=== PATIENT | male | born 1960 | race Caucasian/White ===

== ENCOUNTER → 2017-01-11 | Outpatient (CLI) | payer BC ==
[~2017-01-11] MED LIST: ACCUPRIL20 MG PO; PERCOCET 325 MG1 TA7 PO; ZOFRAN ODT4 MG SL
[2017-01-11 10:11] LABS: BASO % 0.5 % (0.0-1.0); EOS # 0.3 10*3/uL (0.0-0.4); EOS % 3.3 % (1.0-4.0); HEMATOCRIT 52.4 % (42.0-52.0); HEMOGLOBIN 17.3 g/dl (14.0-18.0); LYMPH # 1.9 10*3/uL (1.3-4.4); LYMPH % 24.8 % (27.0-41.0); MEAN CELL VOLUME 87.5 fl (80.0-94.0); MEAN CORPUSCULAR HGB 28.9 pg (27.0-31.0); MEAN PLATELET VOLUME 10.4 fl (9.6-12.3); MONO # 0.7 10*3/uL (0.1-1.0); NEUT # 4.8 10*3/uL (2.3-7.9); NEUT % 62.1 % (47.0-73.0); PLATELET COUNT AUTOMATED 238 10*3/uL (130-400); RED BLOOD COUNT 5.99 10*6/uL (4.50-5.90); RED CELL DISTRI WIDTH 13.8 % (0-14.5); WHITE BLOOD COUNT 7.7 10*3/uL (4.8-10.8)
[2017-01-11 10:34] LABS: ALBUMIN 3.6 gm/dl (3.1-4.5); ALKALINE PHOSPHATASE 134 U/L (45-117); BILIRUBIN, DIRECT < 0.1 mg/dL (0.0-0.2); BILIRUBIN, TOTAL 0.4 mg/dl (0.2-1.0); BUN 17 mg/dl (7-24); CARBON DIOXIDE 28 mmol/L (21-32); CHLORIDE 110 mmol/L (98-107); CHOLESTEROL 212 mg/dL (<200); EST GLOM FILT AFRICAN AMERICAN > 60 ml/min; GLUCOSE 94 mg/dL (65-99); HDL CHOLESTEROL 78 mg/dl (40-60); LDL CHOLESTEROL 112 mg/dL (9-159); POTASSIUM 4.4 mmol/L (3.5-5.1); SGOT/AST 19 IU/L (3-35); SGPT/ALT 34 U/L (12-78); SODIUM 146 mmol/L (136-145); TRIGLYCERIDES 108 mg/dl (<150); VLDL CHOLESTEROL 22 mg/dL (6-40)
[2017-01-11 10:39] LABS: THYROID STIM HORMONE (HS) 0.741 uIU/ml (0.358-4.75); THYROXINE (T4) TOTAL 8.1 ug/dl (4.5-12.1)
== END | disposition home or self-care (01) ==
LOC: LAB 09:38
PROVIDERS: Family Medicine
DX: Z12.5 Encounter for screening for malignant neoplasm of prostate (principal); I10 Essential (primary) hypertension; R35.1 Nocturia

== ENCOUNTER → 2017-07-14 | Outpatient (CLI) | payer BC | END | disposition home or self-care (01) | LOC: LAB 15:42 | DX: R97.20 Elevated prostate specific antigen [PSA] (principal) ==

== ENCOUNTER → 2018-01-17 | Outpatient (CLI) | payer BC | END | disposition home or self-care (01) | LOC: LAB 13:53 | DX: R97.20 Elevated prostate specific antigen [PSA] (principal) ==

== ENCOUNTER → 2018-04-14 | Outpatient (CLI) | payer BC ==
[2018-04-14 08:37] LABS: BASO % 0.5 % (0.0-1.0); EOS # 0.2 10*3/uL (0.0-0.4); EOS % 3.3 % (1.0-4.0); HEMOGLOBIN 17.7 g/dl (14.0-18.0); LYMPH # 1.8 10*3/uL (1.3-4.4); LYMPH % 29.4 % (27.0-41.0); MEAN CELL VOLUME 87.4 fl (80.0-94.0); MEAN CORPUSCULAR HGB 28.6 pg (27.0-31.0); MEAN CORPUSCULAR HGB CONC 32.8 g/dl (33.0-37.0); MEAN PLATELET VOLUME 9.6 fl (9.6-12.3); MONO # 0.7 10*3/uL (0.1-1.0); NEUT # 3.4 10*3/uL (2.3-7.9); NEUT % 54.6 % (47.0-73.0); PLATELET COUNT AUTOMATED 262 10*3/uL (130-400); RED BLOOD COUNT 6.18 10*6/uL (4.50-5.90); RED CELL DISTRI WIDTH 13.2 % (0-14.5); WHITE BLOOD COUNT 6.2 10*3/uL (4.8-10.8)
[2018-04-14 08:53] LABS: BUN 15 mg/dl (7-24); CHLORIDE 113 mmol/L (98-107); CREATININE 0.94 mg/dL (0.70-1.30); SODIUM 146 mmol/L (136-145)
== END | disposition home or self-care (01) ==
LOC: LAB 07:53
PROVIDERS: Orthopaedic Surgery
DX: M16.12 Unilateral primary osteoarthritis, left hip (principal); I10 Essential (primary) hypertension; F17.210 Nicotine dependence, cigarettes, uncomplicated; Z96.642 Presence of left artificial hip joint

== ENCOUNTER → 2018-07-21 | Outpatient (CLI) | payer BC | END | disposition home or self-care (01) | LOC: LAB 14:56 | DX: R97.20 Elevated prostate specific antigen [PSA] (principal) ==

== ENCOUNTER → 2019-07-03 | Outpatient (CLI) | payer BC ==
[2019-07-03 09:12] LABS: HEMATOCRIT 54.2 % (42.0-52.0); HEMOGLOBIN 17.8 g/dl (14.0-18.0); MEAN CELL VOLUME 85.6 fl (80.0-94.0); MEAN CORPUSCULAR HGB 28.1 pg (27.0-31.0); MEAN CORPUSCULAR HGB CONC 32.8 g/dl (33.0-37.0); MEAN PLATELET VOLUME 9.4 fl (9.6-12.3); RED BLOOD COUNT 6.33 10*6/uL (4.50-5.90); RED CELL DISTRI WIDTH 13.9 % (0-14.5); WHITE BLOOD COUNT 8.1 10*3/uL (4.8-10.8)
[2019-07-03 09:38] LABS: ALBUMIN 3.7 gm/dl (3.1-4.5); BILIRUBIN, DIRECT 0.1 mg/dL (0.0-0.2); BUN 13 mg/dl (7-24); CHLORIDE 108 mmol/L (98-107); CHOLESTEROL 206 mg/dL (<200); CREATININE 0.87 mg/dL (0.70-1.30); POTASSIUM 3.8 mmol/L (3.5-5.1); SGOT/AST 23 IU/L (3-35); SGPT/ALT 39 U/L (12-78); SODIUM 142 mmol/L (136-145); TOTAL PROTEIN 7.3 gm/dL (6.4-8.2); TRIGLYCERIDES 144 mg/dl (<150); VLDL CHOLESTEROL 29 mg/dL (6-40)
[2019-07-03 09:45] LABS: ALKALINE PHOSPHATASE 137 U/L (45-117); HDL CHOLESTEROL 52 mg/dl (40-60); LDL CHOLESTEROL 125 mg/dL (9-159); THYROID STIM HORMONE (HS) 0.908 uIU/ml (0.358-4.75); THYROXINE (T4) TOTAL 7.4 ug/dl (4.5-12.1)
== END | disposition home or self-care (01) ==
LOC: LAB 08:51
PROVIDERS: Family Medicine
DX: E11.9 Type 2 diabetes mellitus without complications (principal); I10 Essential (primary) hypertension; R97.20 Elevated prostate specific antigen [PSA]

== ENCOUNTER → 2020-12-11 | Outpatient (CLI) | payer BC ==
[2020-12-11 10:22] LABS: BASO # 0.1 10*3/uL (0.0-0.1); BASO % 0.9 % (0.0-1.0); EOS # 0.1 10*3/uL (0.0-0.4); EOS % 1.3 % (1.0-4.0); HEMATOCRIT 53.1 % (42.0-52.0); LYMPH # 2.1 10*3/uL (1.3-4.4); LYMPH % 30.7 % (27.0-41.0); MEAN CELL VOLUME 86.2 fl (80.0-94.0); MEAN CORPUSCULAR HGB 28.2 pg (27.0-31.0); MEAN CORPUSCULAR HGB CONC 32.8 g/dl (33.0-37.0); MEAN PLATELET VOLUME 9.4 fl (9.6-12.3); MONO # 0.8 10*3/uL (0.1-1.0); MONO % 10.8 % (3.0-9.0); NEUT # 3.9 10*3/uL (2.3-7.9); PLATELET COUNT AUTOMATED 277 10*3/uL (130-400); RED BLOOD COUNT 6.16 10*6/uL (4.50-5.90); RED CELL DISTRI WIDTH 14.1 % (0-14.5)
[2020-12-11 10:53] LABS: ALBUMIN 3.5 gm/dl (3.1-4.5); ALKALINE PHOSPHATASE 128 U/L (45-117); BILIRUBIN, DIRECT 0.1 mg/dL (0.0-0.2); BUN 13 mg/dl (7-24); CHLORIDE 111 mmol/L (98-107); CHOLESTEROL 226 mg/dL (<200); HDL CHOLESTEROL 59 mg/dl (40-60); LDL CHOLESTEROL 142 mg/dL (9-159); POTASSIUM 4.3 mmol/L (3.5-5.1); SGOT/AST 22 IU/L (3-35); SGPT/ALT 41 U/L (12-78); SODIUM 144 mmol/L (136-145); THYROXINE (T4) TOTAL 8.6 ug/dl (4.5-12.1); TOTAL PROTEIN 7.6 gm/dL (6.4-8.2); TRIGLYCERIDES 125 mg/dl (<150); VLDL CHOLESTEROL 25 mg/dL (6-40)
== END | disposition home or self-care (01) ==
LOC: LAB 09:31
PROVIDERS: ATTEND Family Medicine
DX: I10 Essential (primary) hypertension (principal); N40.0 Benign prostatic hyperplasia without lower urinary tract symptoms; R73.9 Hyperglycemia, unspecified

== ENCOUNTER → 2021-04-04 | Outpatient (CLI) | payer BC | END | disposition home or self-care (01) | LOC: LAB 10:46 | PROVIDERS: ATTEND Urology | DX: R97.20 Elevated prostate specific antigen [PSA] (principal) ==

== ENCOUNTER → 2021-07-01 | Outpatient (CLI) | payer BC | END | disposition home or self-care (01) | LOC: LAB 10:47 | PROVIDERS: ATTEND Urology | DX: R97.20 Elevated prostate specific antigen [PSA] (principal) ==

== ENCOUNTER → 2022-08-13 | Outpatient (CLI) | payer BC ==
[2022-08-13 13:15] LABS: ALKALINE PHOSPHATASE 116 U/L (45-117); BUN 19 mg/dl (7-24); CHLORIDE 111 mmol/L (98-107); CHOLESTEROL 221 mg/dL (<200); CREATININE 0.91 mg/dL (0.70-1.30); LDL CHOLESTEROL 127 mg/dL (9-159); SGOT/AST 25 IU/L (3-35); SGPT/ALT 53 U/L (12-78); SODIUM 142 mmol/L (136-145); THYROXINE (T4) TOTAL 8.8 ug/dl (4.5-12.1); TOTAL PROTEIN 7.2 gm/dL (6.4-8.2); TRIGLYCERIDES 236 mg/dl (<150)
== END | disposition home or self-care (01) ==
LOC: LAB 12:25
PROVIDERS: ATTEND Family Medicine
DX: J44.9 Chronic obstructive pulmonary disease, unspecified (principal); I10 Essential (primary) hypertension; R97.20 Elevated prostate specific antigen [PSA]; R60.9 Edema, unspecified; Z79.899 Other long term (current) drug therapy

== ENCOUNTER → 2023-03-31 | Outpatient (CLI) | payer BC ==
[2023-03-31 09:35] LABS: BASO # 0.1 10*3/uL (0.0-0.1); BASO % 0.7 % (0.0-1.0); EOS # 0.3 10*3/uL (0.0-0.4); EOS % 3.3 % (1.0-4.0); HEMATOCRIT 54.5 % (42.0-52.0); LYMPH # 2.3 10*3/uL (1.3-4.4); LYMPH % 27.7 % (27.0-41.0); MEAN CELL VOLUME 86.4 fl (80.0-94.0); MEAN CORPUSCULAR HGB 28.5 pg (27.0-31.0); MEAN PLATELET VOLUME 9.4 fl (9.6-12.3); MONO # 0.9 10*3/uL (0.1-1.0); MONO % 11.4 % (3.0-9.0); NEUT # 4.6 10*3/uL (2.3-7.9); NEUT % 56.5 % (47.0-73.0); PLATELET COUNT AUTOMATED 259 10*3/uL (130-400); RED BLOOD COUNT 6.31 10*6/uL (4.50-5.90); RED CELL DISTRI WIDTH 13.7 % (0-14.5); WHITE BLOOD COUNT 8.2 10*3/uL (4.8-10.8)
[2023-03-31 10:07] LABS: ALKALINE PHOSPHATASE 118 U/L (46-116); BUN 13 mg/dl (9-23); CHLORIDE 105 mmol/L (98-107); CHOLESTEROL 230 mg/dL (<200); LDL CHOLESTEROL 137 mg/dL (9-159); POTASSIUM 4.1 mmol/L (3.4-5.1); SGPT/ALT 39 U/L (10-49); THYROID STIM HORMONE (HS) 1.183 uIU/ml (0.550-4.780); THYROXINE (T4) TOTAL 6.8 ug/dl (4.5-10.9); TOTAL PROTEIN 7.2 gm/dL (6.0-8.0); TRIGLYCERIDES 222 mg/dl (<150)
== END | disposition home or self-care (01) ==
LOC: LAB 09:07
PROVIDERS: ATTEND Family Medicine
DX: Z12.5 Encounter for screening for malignant neoplasm of prostate (principal); E78.00 Pure hypercholesterolemia, unspecified; E03.9 Hypothyroidism, unspecified; Z79.899 Other long term (current) drug therapy; R73.9 Hyperglycemia, unspecified

== ENCOUNTER → 2023-07-26 | Outpatient (CLI) | payer MEDICARE, BC | END | disposition home or self-care (01) | LOC: LAB 13:18 | PROVIDERS: ATTEND Urology | DX: N40.1 Benign prostatic hyperplasia with lower urinary tract symptoms (principal); R97.20 Elevated prostate specific antigen [PSA] ==

== ENCOUNTER → 2023-07-28 | Outpatient (CLI) | payer MEDICARE, BC | END | disposition home or self-care (01) | LOC: RAD 11:36 | PROVIDERS: ATTEND Family Medicine | DX: M50.322 Other cervical disc degeneration at C5-C6 level (principal); M48.02 Spinal stenosis, cervical region; M25.78 Osteophyte, vertebrae; M25.511 Pain in right shoulder ==

== ENCOUNTER 2023-12-02 07:54 | Emergency (ER) | payer MEDICARE, BC ==
[~2023-12-02] VITALS: Ht 177.8 cm; Wt 117.9 kg
[2023-12-02] MEDS ORDERED: Ketorolac Tromethamine 60 MG/2 ML VIAL IM ONE (10:15)
[2023-12-02] MEDS ORDERED: MELOXICAM15 MG PO (10:16)
== END 2023-12-02 10:47 | disposition home or self-care (01) ==
LOC: ED 07:54
DX: S83.92XA Sprain of unspecified site of left knee, initial encounter (principal); Z79.899 Other long term (current) drug therapy; Z98.890 Other specified postprocedural states; W18.43XA Slipping, tripping and stumbling without falling due to stepping from one level to another, initial encounter; Y93.89 Activity, other specified; Y92.89 Other specified places as the place of occurrence of the external cause; Y99.8 Other external cause status

== ENCOUNTER → 2024-04-05 | Outpatient (CLI) | payer MEDICARE, BC ==
[~2024-04-05] MED LIST changes: +MELOXICAM15 MG PO
[2024-04-05 09:38] LABS: BASO # 0.1 10*3/uL (0.0-0.1); BASO % 0.7 % (0.0-1.0); EOS # 0.7 10*3/uL (0.0-0.4); HEMATOCRIT 53.5 % (42.0-52.0); LYMPH # 2.4 10*3/uL (1.3-4.4); LYMPH % 25.3 % (27.0-41.0); MEAN CELL VOLUME 86.6 fl (80.0-94.0); MEAN CORPUSCULAR HGB 28.5 pg (27.0-31.0); MEAN CORPUSCULAR HGB CONC 32.9 g/dl (33.0-37.0); MEAN PLATELET VOLUME 9.4 fl (9.6-12.3); MONO # 1.1 10*3/uL (0.1-1.0); NEUT # 5.3 10*3/uL (2.3-7.9); NEUT % 55.7 % (47.0-73.0); PLATELET COUNT AUTOMATED 281 10*3/uL (130-400); RED BLOOD COUNT 6.18 10*6/uL (4.50-5.90); RED CELL DISTRI WIDTH 13.8 % (0-14.5); WHITE BLOOD COUNT 9.6 10*3/uL (4.8-10.8)
[2024-04-05 10:17] LABS: ALKALINE PHOSPHATASE 118 U/L (46-116); BUN 12 mg/dl (9-23); CHLORIDE 105 mmol/L (98-107); CHOLESTEROL 229 mg/dL (<200); LDL CHOLESTEROL 141 mg/dL (9-159); POTASSIUM 3.6 mmol/L (3.4-5.1); SGPT/ALT 26 U/L (5-49); THYROXINE (T4) TOTAL 8.4 ug/dl (4.5-10.9); TOTAL PROTEIN 7.1 gm/dL (6.0-8.0); TRIGLYCERIDES 206 mg/dl (<150)
== END ==
LOC: LAB 09:08
PROVIDERS: ATTEND Family Medicine
DX: Z12.5 Encounter for screening for malignant neoplasm of prostate (principal); I10 Essential (primary) hypertension; R73.9 Hyperglycemia, unspecified

== ENCOUNTER → 2024-06-01 | Outpatient (CLI) | payer MEDICARE, BC ==
[2024-06-01 18:23] LABS: BUN 13 mg/dl (9-23); CHLORIDE 109 mmol/L (98-107); POTASSIUM 3.9 mmol/L (3.4-5.1)
== END | disposition home or self-care (01) ==
LOC: LAB 17:49
PROVIDERS: ATTEND Family Medicine
DX: S00.96XA Insect bite (nonvenomous) of unspecified part of head, initial encounter (principal); X58.XXXA Exposure to other specified factors, initial encounter; Y93.89 Activity, other specified; Y92.89 Other specified places as the place of occurrence of the external cause; Y99.8 Other external cause status

== ENCOUNTER → 2024-06-06 | Outpatient (CLI) | payer MEDICARE, BC | END | disposition home or self-care (01) | LOC: RAD 14:58 | PROVIDERS: ATTEND Family Medicine | DX: M25.511 Pain in right shoulder (principal) ==

== ENCOUNTER → 2024-06-15 | Outpatient (CLI) | payer MEDICARE, BC | END | disposition home or self-care (01) | LOC: RAD 13:59 | PROVIDERS: ATTEND Family Medicine | DX: M47.812 Spondylosis without myelopathy or radiculopathy, cervical region (principal); M48.02 Spinal stenosis, cervical region ==

== ENCOUNTER → 2025-06-28 | Outpatient (CLI) | payer MEDICARE, BC ==
[2025-06-28 08:17] LABS: BASO # 0.1 10*3/uL (0.0-0.1); BASO % 0.7 % (0.0-1.0); EOS # 0.3 10*3/uL (0.0-0.4); EOS % 3.6 % (1.0-4.0); MEAN CELL VOLUME 87.5 fl (80.0-94.0); MEAN CORPUSCULAR HGB 28.5 pg (27.0-31.0); MEAN PLATELET VOLUME 9.7 fl (9.6-12.3); MONO # 0.8 10*3/uL (0.1-1.0); MONO % 10.7 % (3.0-9.0); NEUT # 4.3 10*3/uL (2.3-7.9); NEUT % 57.2 % (47.0-73.0); NUCLEATED RED BLOOD CELL 0.0 % (0.0-0.0); NUCLEATED RED BLOOD CELL 0.0 10*3/uL (0.0-0.0); PLATELET COUNT AUTOMATED 267 10*3/uL (130-400); RED CELL DISTRI WIDTH 13.8 % (0-14.5)
[2025-06-28 08:39] LABS: BUN 12 mg/dl (9-23); LDL CHOLESTEROL 116 mg/dL (9-159); SGPT/ALT 19 U/L (5-49)
[2025-06-28 09:46] LABS: VITAMIN D, 25-HYDROXY 40.7 ng/mL (30-100)
== END | disposition home or self-care (01) ==
LOC: LAB 07:44
PROVIDERS: ATTEND Family Medicine
DX: I10 Essential (primary) hypertension (principal); R73.9 Hyperglycemia, unspecified; R97.20 Elevated prostate specific antigen [PSA]; E55.9 Vitamin D deficiency, unspecified

== ENCOUNTER → 2025-10-08 | Outpatient (CLI) | payer MEDICARE, BC | END | disposition home or self-care (01) | LOC: LAB 12:47 | PROVIDERS: ATTEND Urology | DX: N40.1 Benign prostatic hyperplasia with lower urinary tract symptoms (principal) ==